=== PATIENT | male | born 1995 | race Caucasian/White ===

== ENCOUNTER 2024-01-05 17:11 | Emergency (ER) | payer BC, OTHER ==
--- NOTE | 2024-01-05 17:31 | ERPHSYRPT ---
- History of Present Illness Time Seen by Provider: 01/05/24 17:31 Source: patient Exam Limitations: no limitations Physician History: 28-year-old right handed white male patient with history of gastroesophageal reflux disease and presents by private vehicle secondary to him sustaining a squirrel bite to the palmar aspect of his right thumb prior to arrival. His tetanus status is up-to-date and he was unsure whether or not scrotal skin transmit rabies virus to human. Timing/Duration: today Quality: burning Severity: mild Location: hands (Right handthumb) Possible Causes: other (Squirrel bite) Associated Symptoms: denies symptoms Allergies/Adverse Reactions: No Known Drug Allergies Allergy (Unverified 02/25/15 22:45) Home Medications: Eszopiclone 1 tab PO DAILY 01/05/24 [History] Hx Tetanus, Diphtheria Vaccination/Date Given: Yes Hx Influenza Vaccination/Date Given: No Hx Pneumococcal Vaccination/Date Given: No Travel Risk - International Travel Have you traveled outside of the country in past 3 weeks: No - Emerging Infectious Disease Are you exhibiting symptoms associated with any current EIDs: No - Review of Systems Constitutional: No Symptoms Eyes: No Symptoms Ears, Nose, & Throat: No Symptoms Respiratory: No Symptoms Cardiac: No Symptoms Abdominal/Gastrointestinal: No Symptoms Genitourinary Symptoms: No Symptoms Musculoskeletal: No Symptoms Skin: Other (Squirrel bite to palmar aspect right thumb) Neurological: No Symptoms Psychological: No Symptoms Endocrine: No Symptoms Hematologic/Lymphatic: No Symptoms Immunological/Allergic: No Symptoms All Other Systems: Reviewed and Negative - Past Medical History Pertinent Past Medical History: Yes Neurological History: No Pertinent History ENT History: No Pertinent History Cardiac History: No Pertinent History Respiratory History: No Pertinent History Endocrine Medical History: No Pertinent History Musculoskeletal History: No Pertinent History GI Medical History: GERD History: No Pertinent History Psycho-Social History: No Pertinent History Male Reproductive Disorders: No Pertinent History Other Medical History: 'heartburn' - Past Surgical History Past Surgical History: Yes Neuro Surgical History: No Pertinent History Cardiac: No Pertinent History Respiratory: No Pertinent History Gastrointestinal: No Pertinent History Genitourinary: No Pertinent History Musculoskeletal: No Pertinent History Male Surgical History: No Pertinent History Other Surgical History: rt 5th finger cyst removed - Social History Smoking Status: Current every day smoker Exposure to second hand smoke: Yes Drug Use: marijuana Patient Lives Alone: No - Nursing Vital Signs Nursing Vital Signs: Initial Vital Signs Temperature 98.9 F 01/05/24 17:32 Pulse Rate 69 01/05/24 17:32 Respiratory Rate 16 01/05/24 17:32 Blood Pressure 129/88 01/05/24 17:32 O2 Sat by Pulse Oximetry 97 01/05/24 17:32 Pain Scale Pain Intensity 0 - Physical Exam General Appearance: no apparent distress, alert, anxiety Eye Exam: PERRL/EOMI, eyes nml inspection Ears, Nose, Throat Exam: normal ENT inspection, moist mucous membranes Neck Exam: normal inspection, non-tender, supple, full range of motion Respiratory Exam: airway intact, No chest tenderness, No respiratory distress Gastrointestinal/Abdomen Exam: No tenderness Rectal Exam: not done Back Exam: normal inspection, normal range of motion, No CVA tenderness, No vertebral tenderness Extremity Exam: normal inspection, normal range of motion, pelvis stable Neurologic Exam: alert, oriented x 3, cooperative, die polisher II-XII nml as tested, nml cerebellar function, nml station & gait, sensation nml Skin Exam: normal color, warm, dry Lymphatic Exam: No adenopathy SpO2 Interpretation: normal O2 Delivery: Room Air - Course Nursing assessment & vital signs reviewed: Yes - Progress Progress: unchanged Progress Note: 01/05/24 18:07 My medical decision making of the assignment of low complexity to this patient's medical issue today is based on review of the patient's past medical history, review the patient's medication list, reviewed patient drug allergy list, history present illness and physical findings on examination. No radiographic or laboratory studies are necessary in today's workup. Patient was reassured that there is been no history of a squirrel transmitting rabies virus to human being. Counseled pt/family regarding: diagnosis Medical Desision Making - Diagnostic Testing Diagnostic test were ordered, analyzed, and reviewed by me: No - Risk of complications The pt has a mod risk of morbidity or mortality based on: Need for prescription drug management - Departure Departure Disposition: Home Clinical Impression: Bitten by squirrel, initial encounter Condition: Stable Critical Care Time: No Additional Instructions: Keep the bite site clean twice a day with warm soapy water. Do not apply lotions ointments or creams to the site. If you notice redness or swelling, fill your antibiotic prescription. Use Tylenol and ibuprofen for pain control. Prescriptions: Cephalexin Mh 500 mg [Keflex 500 mg] 500 mg PO TID #15 cap
[2024-01-05 17:53] VITALS: BP 129/88; RESP 16; TEMP 98.9; O2SAT 97
[2024-01-05 18:25] VITALS: PULSE 72
== END 2024-01-05 18:18 | disposition home or self-care (01) ==
LOC: ED 17:11
DX: S60.371A Other superficial bite of right thumb, initial encounter (principal); W53.21XA Bitten by squirrel, initial encounter; Z79.899 Other long term (current) drug therapy; Z72.0 Tobacco use
CPT/HCPCS: 99281

== ENCOUNTER 2024-12-25 10:40 | Emergency (ER) | payer OTHER ==
--- NOTE | 2024-12-25 10:42 | ERPHSYRPT ---
- History of Present Illness Time Seen by Provider: 12/25/24 10:41 Historian: patient, family Exam Limitations: no limitations Physician History: This is a 29-year-old male brought to the emergency department by private vehicle accompanied by his spouse and has a history of gastroesophageal reflux disease with the complaint of bilateral flank pain that radiates down into his bilateral testicle. He is nauseated but has not vomited. The pain came on at 8 AM rather suddenly and has worsened. Patient has had no abdominal surgeries in the past. He has never had pain like this before. Patient denies chest pain and he denies shortness of breath. Timing/Duration: today, worse Quality: aching Abdominal Pain Onset Location: flank (Left flank) Pain Radiation: groin (Left groin/testicle) Severity of Pain-Max: moderate Severity of Pain-Current: moderate Modifying Factors: Improves With: nothing Associated Symptoms: nausea, No chest pain, No diarrhea, No shortness of breath, No vomiting Previous symptoms: no prior history, no recent treatment Allergies/Adverse Reactions: No Known Drug Allergies Allergy (Verified 09/23/24 00:39) Hx Tetanus, Diphtheria Vaccination/Date Given: Yes Hx Influenza Vaccination/Date Given: No Hx Pneumococcal Vaccination/Date Given: No Travel Risk - International Travel Have you traveled outside of the country in past 3 weeks: No - Emerging Infectious Disease Are you exhibiting symptoms associated with any current EIDs: No - Review of Systems Constitutional: No Symptoms Eyes: No Symptoms Ears, Nose, & Throat: No Symptoms Respiratory: No Symptoms Cardiac: No Symptoms Genitourinary Symptoms: Flank Pain (Left flank), Testicle Pain (Site) Musculoskeletal: No Symptoms Skin: No Symptoms Neurological: No Symptoms Psychological: No Symptoms Endocrine: No Symptoms Hematologic/Lymphatic: No Symptoms Immunological/Allergic: No Symptoms All Other Systems: Reviewed and Negative - Past Medical History Pertinent Past Medical History: Yes Neurological History: No Pertinent History ENT History: No Pertinent History Cardiac History: No Pertinent History Respiratory History: No Pertinent History Endocrine Medical History: No Pertinent History Musculoskeletal History: No Pertinent History GI Medical History: GERD History: No Pertinent History Psycho-Social History: No Pertinent History Male Reproductive Disorders: No Pertinent History Other Medical History: 'heartburn' - Past Surgical History Past Surgical History: Yes Neuro Surgical History: No Pertinent History Cardiac: No Pertinent History Respiratory: No Pertinent History Gastrointestinal: No Pertinent History Genitourinary: No Pertinent History Musculoskeletal: No Pertinent History Male Surgical History: No Pertinent History Other Surgical History: rt 5th finger cyst removed - Social History Smoking Status: Current every day smoker Exposure to second hand smoke: Yes Drug Use: marijuana Patient Lives Alone: No - Social Determinants of Health Will the patient participate in the screening: Declined to provide - Nursing Vital Signs Nursing Vital Signs: Initial Vital Signs Temperature 97.1 F 12/25/24 10:40 Pulse Rate 82 12/25/24 10:40 Respiratory Rate 18 12/25/24 10:40 Blood Pressure 163/106 12/25/24 10:40 O2 Sat by Pulse Oximetry 100 12/25/24 10:40 Pain Scale Pain Intensity 3 - Physical Exam General Appearance: mild distress, alert, anxiety Eye Exam: PERRL/EOMI, eyes nml inspection Ears, Nose, Throat Exam: normal ENT inspection, moist mucous membranes Neck Exam: normal inspection, non-tender, supple, full range of motion Respiratory Exam: normal breath sounds, lungs clear, airway intact, No chest tenderness, No respiratory distress Gastrointestinal/Abdomen Exam: soft, normal bowel sounds, tenderness Rectal Exam: not done Back Exam: normal inspection, normal range of motion, CVA tenderness (Left side), No vertebral tenderness Extremity Exam: normal inspection, normal range of motion, pelvis stable Neurologic Exam: alert, oriented x 3, cooperative, prime minister II-XII nml as tested, nml cerebellar function, nml station & gait, sensation nml Skin Exam: normal color, warm, dry Lymphatic Exam: No adenopathy SpO2 Interpretation: normal O2 Delivery: Room Air - Course Nursing assessment & vital signs reviewed: Yes Ordered Tests: Active Orders 24 hr Category Date Time Status IV Insertion STAT Care 12/25/24 10:58 Active ABDOMEN AND PELVIS W/0 CONTRAS [CT] Stat Exams 12/25/24 10:58 Completed AMYLASE Stat Lab 12/25/24 11:16 Completed CBC W DIFF Stat Lab 12/25/24 10:58 Completed CMP Stat Lab 12/25/24 11:16 Completed LIPASE Stat Lab 12/25/24 11:16 Completed UA W/RFX UR CULTURE Stat Lab 12/25/24 10:58 Completed Medication Summary Discontinued Medications Generic Name Dose Route Start Last Admin Trade Name Freq PRN Reason Stop Dose Admin Hydromorphone HCl Confirm 12/25/24 10:57 Hydromorphone 1 Mg/1ml Inj Administered 12/25/24 10:58 Dose 1 mg .ROUTE .STK-MED ONE Hydromorphone HCl 1 mg 12/25/24 10:58 12/25/24 11:09 Hydromorphone 1 Mg/1ml Inj IV 12/25/24 10:59 1 mg STAT ONE Administration Sodium Chloride 1,000 mls @ 999 mls/hr 12/25/24 10:58 12/25/24 12:30 Sodium Chloride 0.9% 1000 Ml IV 12/25/24 11:58 Infused .Q1H1M STA Infusion Sodium Chloride Confirm 12/25/24 11:09 Sodium Chloride 0.9% 1000 Ml Administered 12/25/24 11:10 Dose 1,000 mls @ ud .ROUTE .STK-MED ONE Ketorolac Tromethamine Confirm 12/25/24 10:57 Ketorolac Tromethamine 30 Mg/Ml Inj Administered 12/25/24 10:58 Dose 30 mg .ROUTE .STK-MED ONE Ketorolac Tromethamine 30 mg 12/25/24 10:58 12/25/24 11:09 Ketorolac Tromethamine 30 Mg/Ml Inj IV 12/25/24 10:59 30 mg STAT ONE Administration Ondansetron HCl Confirm 12/25/24 10:57 Ondansetron Hcl 4 Mg/2 Ml Vial Administered 12/25/24 10:58 Dose 4 mg .ROUTE .STK-MED ONE Ondansetron HCl 4 mg 12/25/24 10:58 12/25/24 11:09 Ondansetron Hcl 4 Mg/2 Ml Vial IV 12/25/24 10:59 4 mg STAT ONE Administration Lab/Rad Data: Laboratory Result Diagrams 12/25/24 10:58 12/25/24 11:16 Laboratory Results 12/25/24 12/25/24 12/25/24 Range/Units 11:16 10:58 10:58 WBC 15.2 H (4.23-9.07) x10^3/uL RBC 5.42 (4.63-6.08) x10^6/uL Hgb 14.7 (13.7-17.5) g/dL Hct 44.7 (40.1-51.0) % MCV 82.5 (79.0-92.2) fL MCH 27.1 (25.7-32.2) pg MCHC 32.9 (32.3-36.5) g/dL RDW 13.8 (11.6-14.4) % Plt Count 316 (163-337) x10^3/uL MPV 8.8 L (9.4-12.4) fL Gran % 74.6 H (34.0-67.9) % Immature Gran % (Auto) 0.7 H (0.001-0.429) % Nucleat RBC Rel Count 0.0 (0.00-0.2) % Eos # (Auto) 0.40 (0.04-0.54) x10^3/uL Immature Gran # (Auto) 0.10 H (0.001-0.031) x10^3u/L Absolute Lymphs (auto) 2.41 (1.32-3.57) x10^3/uL Absolute Monos (auto) 0.88 H (0.30-0.82) x10^3/uL Absolute Nucleated RBC 0.00 (0.00-0.012) x10^3u/L Lymphocytes % 15.8 L (21.8-53.1) % Monocytes % 5.8 (5.3-12.2) % Eosinophils % 2.6 (0.8-7.0) % Basophils % 0.5 (0.2-1.2) % Absolute Granulocytes 11.36 H (1.78-5.38) x10^3/uL Basophils # 0.07 (0.01-0.08) x10^3/uL Sodium 140 (135-145) mmol/L Potassium 4.5 (3.5-5.1) mmol/L Chloride 102 (98-107) mmol/L Carbon Dioxide 26 (22-30) mmol/L Anion Gap 16.2 H (5-15) MEQ/L BUN 11 (9-20) mg/dL Creatinine 0.79 (0.66-1.25) mg/dL Estimated GFR 124.1 ML/MIN Glucose 111 H (74-106) mg/dL Calcium 10.2 (8.4-10.2) mg/dL Total Bilirubin 0.70 (0.2-1.3) mg/dL AST 29 (17-59) U/L ALT 29 (0-50) U/L Alkaline Phosphatase 104 (38-126) U/L Serum Total Protein 8.2 (6.3-8.2) g/dL Albumin 5.0 (3.5-5.0) g/dL Amylase 88 (30-110) U/L Lipase 472 H (23-300) U/L Urine Color Yellow (Yellow) Urine Appearance Cloudy A (Clear) Urine pH 8.0 (4.6-8.0) Ur Specific Early 1.020 (1.005-1.030) Urine Protein Trace A (Negative) Urine Glucose (UA) Negative (Negative) mg/dL Urine Ketones Negative (Negative) Urine Blood Moderate A (Negative) Urine Nitrite Negative (Negative) Urine Bilirubin Negative (Negative) Urine Urobilinogen 1.0 A (0.2) mg/dL Ur Leukocyte Esterase Negative (Negative) U Hyaline Cast (Auto) NONE SEEN (0-2) /LPF Urine Microscopic RBC 51-100 A (0-5) /HPF Urine Microscopic WBC 0-2 (0-5) /HPF Ur Epithelial Cells None Seen (None Seen) /HPF Urine Bacteria None Seen (None Seen) /HPF Urine Culture Reflexed NO (NO) - Progress Progress: improved, pain not gone completely, re-examined Progress Note: 12/25/24 11:04 My medical decision making and the assignment of moderate complexity of this patient's medical issue today is based on review of the patient's past medical history, reviewed patient's medication list, reviewed patient drug allergy list, history present illness and physical findings on examination. The workup in this patient includes placement of intravenous line, infusion of crystalloid solution, infusion of Zofran, Dilaudid and Toradol intravenously, CBC, CMP, amylase, lipase, urinalysis and CT scan of the abdomen pelvis without contrast. Differential diagnosis includes was not limited to pyelonephritis, ureterolithiasis, urinary tract infection, pancreatitis, diverticulitis, colitis 12/25/24 13:22 I interpreted the patient's laboratory data results. Based on laboratory data results, the patient has hematuria but no other acute, emergent medical issue. The CT scan of the abdomen pelvis without contrast was interpreted by the radiologist and I reviewed the impression. The impression states 2 mm calculus adjacent to the right UVJ within the urinary bladder. There is mild right hydronephrosis. Presumed recent passage of calculus. After reviewing the radiologist impression of the CT scan results, I went into asked the patient about the location of his pain. Upon arrival to the emergency department, the patient was holding his left flank and stated that the pain was shooting down sharply into his left testicle. However, now that his pain is under control and nearly resolved, he states actually the pain was in both flanks and both testicles and he really could not determine which side the pain was actually coming from. Counseled pt/family regarding: lab results, diagnosis Medical Desision Making - Independent Historian Additional History obtained from: Spouse - Diagnostic Testing Diagnostic test were ordered, analyzed, and reviewed by me: Yes Radiological Interpretation: Reviewed by me, Teleradiologist Report - Risk of complications Low Risk: Low risk of morbidity from additional dx testing or treatment The pt has a mod risk of morbidity or mortality based on: Need for prescription drug management - Departure Departure Disposition: Home Clinical Impression: Urinary bladder calculus Condition: Stable Critical Care Time: No Referrals: DOCTOR,NO FAMILY [Primary Care Provider, UNKNOWN] - Follow up/PCP as directed Additional Instructions: Drink plenty of clear liquids before advancing your diet. Add ibuprofen 600 mg orally 3 times a day with food for the next 5 days. Activity as tolerated Prescriptions: Hydrocodone/APAP 5/325 [Brad[place] 5/325 mg] 1 each PO Q8H PRN PRN #10 tablet MDD 3 PRN Reason: Pain
[2024-12-25] MEDS ORDERED: TORAdol 30 mg Injection ONE (10:57)
[2024-12-25] MEDS ORDERED: Zofran 4 MG/2 ML VIAL ONE (10:57)
[2024-12-25] MEDS ORDERED: Hydromorphone 1 mg/ml Injection ONE (10:57)
[2024-12-25 11:07] VITALS: TEMP 97.1
[2024-12-25] MEDS: Zofran 4 MG/2 ML VIAL IV ONE (11:09)
[2024-12-25] MEDS: Hydromorphone 1 mg/ml Injection IV ONE (11:09)
[2024-12-25] MEDS: TORAdol 30 mg Injection IV ONE (11:09)
[2024-12-25 11:19] LABS: BASOPHIL % 0.5 % (0.2-1.2); Basophil (Absolute #) 0.07 x10^3/uL (0.01-0.08); Eosinophil (Absolute #) 0.40 x10^3/uL (0.04-0.54); Hematocrit 44.7 % (40.1-51.0); Hemoglobin 14.7 g/dL (13.7-17.5); IMMATURE GRAN # 0.10 x10^3u/L (0.001-0.031); IMMATURE GRAN % 0.7 % (0.001-0.429); Lymphocyte (Absolute #) 2.41 x10^3/uL (1.32-3.57); Mean Corpuscular Hemoglobin 27.1 pg (25.7-32.2); Mean Corpuscular Hgb Concent. 32.9 g/dL (32.3-36.5); Monocyte (Absolute #) 0.88 x10^3/uL (0.30-0.82); NUCLEATED RBC # 0.00 x10^3u/L (0.00-0.012); NUCLEATED RBC % 0.0 % (0.00-0.2); Platelet Count 316 x10^3/uL (163-337); Red Blood Count 5.42 x10^6/uL (4.63-6.08); White Blood Count 15.2 x10^3/uL (4.23-9.07)
[2024-12-25 11:23] LABS: Glucose, Urine Negative (Negative); Protein,Urine Dip Trace (Negative); RBC 51-100 /HPF (0-5); WBC 0-2 /HPF (0-5)
[2024-12-25 11:32] LABS: Calcium 10.2 mg/dL (8.4-10.2); Carbon Dioxide 26.0 mmol/L (22-30); Creatinine 1 0.79 mg/dL (0.66-1.25); EST GLOMERULAR FILTRATION RATE 124.1 ML/MIN; Glucose 111.0 mg/dL (74-106); Potassium 4.5 mmol/L (3.5-5.1); SGOT/AST 29.0 U/L (17-59); SGPT/ALT 29.0 U/L (0-50); Total Protein 8.2 g/dL (6.3-8.2)
[2024-12-25 12:07] VITALS: PULSE 67; RESP 18; O2SAT 100
--- NOTE | 2024-12-25 13:01 | XRAY ---
Indication: Left flank pain. Multiple contiguous axial images obtained through the abdomen and pelvis without contrast using renal stone protocol. Comparison: None Lung bases clear. Heart not enlarged. Urinary bladder demonstrates 2 mm calculus adjacent to right UVJ. Mild right hydronephrosis presumed from recent passage of said calculus. A few small bowel radiopacities presumed ingested medication, bismuth, or barium. Stomach and bowel loops appear nonobstructed. Normal appendix. No free fluid/air. Remaining liver, gallbladder, pancreas, spleen, adrenal glands, kidneys, ureters, bladder, and aorta are unremarkable for noncontrast exam. Osseous structures intact with incidental posterior right acetabular fracture with intact fixation plate/screws. Impression: 1. 2 mm urinary bladder calculus adjacent to right UVJ with mild right hydronephrosis. 2. Remaining CT abdomen/pelvis without contrast exam is negative.
[2024-12-25 14:07] VITALS: BP 131/75
== END 2024-12-25 13:50 | disposition home or self-care (01) ==
LOC: ED 10:40
DX: N21.0 Calculus in bladder (principal); R10.9 Unspecified abdominal pain; R11.0 Nausea; Z79.891 Long term (current) use of opiate analgesic; Z72.0 Tobacco use